=== PATIENT | male | born 1990 | race Caucasian/White ===

== ENCOUNTER 2018-05-02 22:54 | Emergency (ER) | payer MEDICAID, OTHER ==
[2018-05-02] MEDS: AZITHROMYCIN 250 MG TAB PO (23:56)
[2018-05-02] MEDS: CEFTRIAXONE 250 MG INJ IM (23:56)
[2018-05-03 00:45] LABS: ADD UMIC YES; UR ASCORBIC ACID NEGATIVE (NEGATIVE); UR BILIRUBIN (Dip) NEGATIVE (NEGATIVE); UR BLOOD (Dip) NEGATIVE (NEGATIVE); UR CLARITY SLIGHTLY CLOUDY (CLEAR); UR COLOR RED (YELLOW); UR GLUCOSE (Dip) NEGATIVE (NEGATIVE); UR KETONES (Dip) NEGATIVE (NEGATIVE); UR LEUKOCYTE ESTERASE (Dip) 3+ Leu/ul (NEGATIVE); UR NITRITE (Dip) NEGATIVE (NEGATIVE); UR RBC 1 /HPF (0-5); UR SPECIFIC GRAVITY (Dip) 1.008 (1.003-1.030); UR TOTAL PROTEIN (Dip) NEGATIVE (NEGATIVE); UR UROBILINOGEN (Dip) NEGATIVE (NEGATIVE); UR WBC > 182 /HPF (0-5)
== END 2018-05-03 00:10 | disposition home or self-care (01) ==
LOC: FTE 22:54
DX: R30.0 Dysuria (principal)
CPT/HCPCS: 81001; 87591; 96372; 99284-25